=== PATIENT | female | born 1945 | race Caucasian/White ===

== ENCOUNTER → 2016-12-22 | Outpatient (CLI) | payer OTHER ==
[2016-06-22 11:00] VITALS: BP 141/51
[~2016-12-22] MED LIST: ACET500T68 PO; ASPI325T8 PO; CEPH-264 PO; FLUT1DIS3 IH; INSU100I17 SQ; INSU100I30 SQ; INSU100V8 SQ; LISI-338 PO; LISI2.5T PO; Levofloxacin PO; METO25TA4 PO; MULT-245 PO; NITR0.4T SL; OMEG300C PO; OXYB5TAB7 PO; PERFLUTREN PROTEIN-A MICROSPHR 0.22 MG/ML 3 ML VIAL. IV ONE; PIOG30TA3 PO; PRED20TA PO; PROAIR HFA8.5 GM IH; SIMV20TA3 PO; TIOT18CA IH
--- NOTE | 2016-12-23 09:04 | CARD ---
APPROVED REPORT EXAM: Two-dimensional and M-mode echocardiogram with Doppler and color Doppler. Other Information Quality : Technically Limited Technically limited study due to body habitus. INDICATION CAD Echo Enhancing Agent Agent/Amount Used: Optison 3mL 2D DIMENSIONS RVDd3.2 (2.9-3.5cm)Left Atrium(2D)5.2 (1.6-4.0cm) IVSd1.2 (0.7-1.1cm)Aortic Root(2D)2.9 (2.0-3.7cm) LVDd5.6 (3.9-5.9cm)LVOT Diameter2.0 (1.8-2.4cm) PWd1.2 (0.7-1.1cm)LVDs3.9 (2.5-4.0cm) FS (%) 29.2 %SV84.0 ml LVEF(%)55.5 (>50%) Aortic Valve AoV Peak Kayode.188.8cm/sAoV VTI39.6cm AO Peak GR.14.3mmHgLVOT Peak Kayode.145.5cm/s AO Mean GR.7mmHgAVA (VMAX)2.38cm2 ECHO (VTI)2.70cm2 Mitral Valve MV E Njjuvmgk983.1cm/sMV DECEL MVUD160ix MV A Rxhzqfqz07.3cm/sE/A Ratio1.5 Tricuspid Valve TR P. Zxilvwrm659bm/sRAP FGZLQLUB3zbLf TR Peak Gr.71okGlDZXS84cwXh LEFT VENTRICLE The left ventricle is normal size. There is mild concentric left ventricular hypertrophy. Left ventri galdino systolic function is low normal. The Ejection Fraction is 50-55%. Grossly normal wall motion. Due to limited images, further assessment is limited. Transmitral Doppler flow pattern is Grade I-abnorm al relaxation pattern. RIGHT VENTRICLE Not well visualized. The right ventricular systolic function is normal. ATRIA The left atrium is mildly dilated. The right atrium size is normal. The interatrial septum is intact with no evidence for an atrial septal defect or patent foramen ovale as noted on 2-D or Doppler imagi ng. AORTIC VALVE Not well visualized. Doppler and Color Flow revealed no significant aortic regurgitation. There is no significant aortic valvular stenosis. MITRAL VALVE The mitral valve is calcified but opens well. There is no evidence of mitral valve prolapse. There is no mitral valve stenosis. Doppler and Color Flow revealed no mitral valve regurgitation noted. TRICUSPID VALVE The tricuspid valve is normal in structure and function. Doppler and Color Flow revealed mild tricusp id regurgitation. There is no pulmonary hypertension. The PA pressure was estimated at 21 mmHg. There is no tricuspid valve stenosis. PULMONIC VALVE Doppler and Color Flow revealed no pulmonic valvular regurgitation. There is no pulmonic valvular wil nosis. GREAT VESSELS The aortic root is normal in size. The ascending aorta is normal in size. The IVC is normal in size a nd collapses >50% with inspiration. PERICARDIAL EFFUSION There is no pleural effusion. There is no evidence of significant pericardial effusion. Critical Notification Critical Value: No <Conclusion> Left ventricle systolic function is low normal. The Ejection Fraction is 50-55%. Paradoxical septal motion consistent with post-operative state. Grossly normal wall motion. Due to limited images, further assessment is limited.
== END | disposition home or self-care (01) ==
LOC: ECHO 14:03
PROVIDERS: ATTEND Internal Medicine Cardiovascular Disease
DX: I25.10 Atherosclerotic heart disease of native coronary artery without angina pectoris (principal)
CPT/HCPCS: C8929

== ENCOUNTER 2017-02-26 08:22 | Inpatient (IN) | payer OTHER ==
[2017-02-26] MEDS ORDERED: ALBUTEROL SULFATE 2.5 MG/3 ML NEBU. (08:53)
[2017-02-26 09:02] LABS: ADD MAN DIFF? NO
[2017-02-26] MEDS: IPRATRPIUM/ALBUTEROL 0.5/2.5MG 3 ML NEBU. NEB ×4 (09:05→20:00)
[2017-02-26] MEDS: ALBUTEROL SULFATE 2.5 MG/3 ML NEBU. CONT NEB (09:05)
[2017-02-26] MEDS ORDERED: methylPREDNISolone SOD SUCC PF 125 MG/2 ML VIAL. ×2 (09:12)
[2017-02-26] MEDS: methylPREDNISolone SOD SUCC PF 125 MG/2 ML VIAL. IV (09:16)
[2017-02-26 09:18] LABS: ANION GAP 8 (6-14); BLOOD UREA NITROGEN 14 mg/dL (7-20); BUN/CREATININE RATIO 20 (6-20); CALCIUM 9.7 mg/dL (8.5-10.1); CARBON DIOXIDE 32 mmol/L (21-32); CHLORIDE 97 mmol/L (98-107); CREATININE 0.7 mg/dL (0.6-1.0); GFR 82.3; GLUCOSE 218 mg/dL (70-99); POTASSIUM 4.6 mmol/L (3.5-5.1); SODIUM 137 mmol/L (136-145)
[2017-02-26 09:23] LABS: BASO % 0 % (0-3); EOS % 0 % (0-3); HEMATOCRIT 42.3 % (36.0-47.0); HEMOGLOBIN 13.8 g/dL (12.0-15.5); LYMPH # 0.5 x10^3/uL (1.0-4.8); LYMPH % 8 % (24-48); MEAN CORPUSCULAR HEMOGLOBIN 30 pg (25-35); MEAN CORPUSCULAR HGB CONC 33 g/dL (31-37); MEAN CORPUSCULAR VOLUME 91 fL (79-100); MONO # 0.9 x10^3/uL (0.0-1.1); MONO % 14 % (0-9); NEUT # 4.8 x10^3uL (1.8-7.7); NEUT % 77 % (31-73); PLATELET COUNT 187 x10^3/uL (140-400); RED BLOOD COUNT 4.63 x10^6/uL (3.50-5.40); RED CELL DISTRIBUTION WIDTH 15.2 % (11.5-14.5); WHITE BLOOD COUNT 6.2 x10^3/uL (4.0-11.0)
[2017-02-26 09:25] LABS: BASE EXCESS ABG 3 mmol/L (-3-3); HCO3 ABG 30 mmol/L (21-28); INFLUENZA A PATIENT NEGATIVE (NEGATIVE); INFLUENZA B PATIENT NEGATIVE (NEGATIVE); OBC FLU VALID; PCO2 ABG 56 mmHg (35-46); PH ABG 7.34 (7.35-7.45); PO2 ABG 80 mmHg (65-108); SAT O2 ABG 95 % (92-99)
[2017-02-26 09:26] LABS: ALBUMIN 3.6 g/dL (3.4-5.0); ALK PHOS 112 U/L (46-116); ALT (SGPT) 22 U/L (14-59); AST (SGOT) 22 U/L (15-37); TOTAL BILIRUBIN 0.5 mg/dL (0.2-1.0); TOTAL PROTEIN 7.1 g/dL (6.4-8.2)
[2017-02-26 09:26] LABS: TROPONINI 0.046 ng/mL (0.000-0.055)
[2017-02-26 09:27] LABS: FIO2 ABG 10 lpm mask
[2017-02-26 09:32] LABS: NT-PRO BNP 1078 pg/mL (0-124)
[2017-02-26 09:32] LABS: CKMB INDEX 1.1 % (0-4); CKMB MASS 0.8 ng/mL (0.0-3.6); CREATINE KINASE 76 U/L (26-192)
[2017-02-26] MEDS ORDERED: NITROGLYCERIN SUBLINGUAL 0.4 MG BOTTLE OF 25. SL (09:45)
[2017-02-26] MEDS: ASPIRIN 325 MG TABLET PO (12:01)
[2017-02-26] MEDS: METOPROLOL TART IMMED RELEASE 25 MG TABLET. PO ×2 (12:02→20:49)
[2017-02-26] MEDS: FAMOTIDINE 20 MG TABLET. PO ×2 (12:02→20:49)
[2017-02-26] MEDS: ENOXAPARIN 40 MG/0.4 ML SYRINGE. SQ (12:03)
[2017-02-26] MEDS: BUDESONIDE 0.5 MG/2 ML NEBU. NEB ×2 (12:31→20:00)
[2017-02-26 14:50] LABS: POC GLUCOSE 248 mg/dL (70-99)
[2017-02-26] MEDS: methylPREDNISolone SOD SUCC PF 40 MG/ML VIAL. IV ×2 (15:13→20:48)
[2017-02-26] MEDS: INSULIN ASPART 300 UNITS/3 ML INSULN.PEN SQ ×4 (15:19→19:03)
[2017-02-26 16:55] LABS: POC GLUCOSE 346 mg/dL (70-99)
[2017-02-26 16:58] LABS: TROPONINI 0.037 ng/mL (0.000-0.055)
[2017-02-26] MEDS: INSULIN DETEMIR 300 UNITS/3 ML INSULN.PEN. SQ (20:55)
[2017-02-26] MEDS: SIMVASTATIN 20 MG TABLET PO (20:56)
[2017-02-26 21:38] LABS: POC GLUCOSE 310 mg/dL (70-99)
[2017-02-27] MEDS: IPRATRPIUM/ALBUTEROL 0.5/2.5MG 3 ML NEBU. NEB ×7 (00:29→23:48)
[2017-02-27 05:33] LABS: ADD MAN DIFF? NO
[2017-02-27 05:36] LABS: BASO % 0 % (0-3); EOS % 0 % (0-3); HEMATOCRIT 42.2 % (36.0-47.0); HEMOGLOBIN 13.7 g/dL (12.0-15.5); LYMPH # 0.5 x10^3/uL (1.0-4.8); LYMPH % 9 % (24-48); MEAN CORPUSCULAR HEMOGLOBIN 30 pg (25-35); MEAN CORPUSCULAR HGB CONC 32 g/dL (31-37); MEAN CORPUSCULAR VOLUME 92 fL (79-100); MONO # 0.5 x10^3/uL (0.0-1.1); MONO % 10 % (0-9); NEUT # 4.2 x10^3uL (1.8-7.7); NEUT % 81 % (31-73); PLATELET COUNT 195 x10^3/uL (140-400); RED CELL DISTRIBUTION WIDTH 14.9 % (11.5-14.5); WHITE BLOOD COUNT 5.2 x10^3/uL (4.0-11.0)
[2017-02-27] MEDS: methylPREDNISolone SOD SUCC PF 40 MG/ML VIAL. IV ×3 (05:36→20:58)
[2017-02-27 06:43] LABS: ALBUMIN 3.2 g/dL (3.4-5.0); ALBUMIN/GLOBULIN RATIO 0.8 (1.0-1.7); ALK PHOS 99 U/L (46-116); ALT (SGPT) 23 U/L (14-59); ANION GAP 7 (6-14); AST (SGOT) 20 U/L (15-37); BLOOD UREA NITROGEN 30 mg/dL (7-20); BUN/CREATININE RATIO 30 (6-20); CALCIUM 9.7 mg/dL (8.5-10.1); CARBON DIOXIDE 32 mmol/L (21-32); CHLORIDE 98 mmol/L (98-107); GFR 54.5; GLUCOSE 274 mg/dL (70-99); POTASSIUM 4.9 mmol/L (3.5-5.1); SODIUM 137 mmol/L (136-145); TOTAL BILIRUBIN 0.2 mg/dL (0.2-1.0); TOTAL PROTEIN 7.3 g/dL (6.4-8.2)
[2017-02-27 07:12] LABS: POC GLUCOSE 272 mg/dL (70-99)
[2017-02-27] MEDS: BUDESONIDE 0.5 MG/2 ML NEBU. NEB ×2 (07:33→18:26)
[2017-02-27] MEDS: OXYBUTYNIN CHLORIDE 5 MG TABLET PO (08:33)
[2017-02-27] MEDS: FAMOTIDINE 20 MG TABLET. PO ×2 (08:34→20:58)
[2017-02-27] MEDS: LISINOPRIL 5 MG TABLET. PO (08:34)
[2017-02-27] MEDS: OMEGA-3 FATTY ACIDS/FISH OIL 1,000 MG CAPSULE. PO (08:34)
[2017-02-27] MEDS: ASPIRIN 325 MG TABLET PO (08:34)
[2017-02-27] MEDS: METOPROLOL TART IMMED RELEASE 25 MG TABLET. PO ×2 (08:34→21:05)
[2017-02-27] MEDS: ENOXAPARIN 40 MG/0.4 ML SYRINGE. SQ ×2 (08:35→21:02)
[2017-02-27] MEDS: INSULIN ASPART 300 UNITS/3 ML INSULN.PEN SQ ×6 (08:41→17:00)
[2017-02-27] MEDS: PIOGLITAZONE 15 MG TABLET. PO (10:16)
[2017-02-27 11:12] LABS: POC GLUCOSE 306 mg/dL (70-99)
[2017-02-27] MEDS: LACTULOSE 20 GM/30 ML SOLUTION. PO ×2 (11:59→14:15)
[2017-02-27] MEDS: IV NORMAL SALINE 1000ML BAG 1,000 ML IV (11:59)
[2017-02-27] MEDS: NYSTATIN 100,000 UNIT/GM TOPICAL CREAM 15GM TUBE. TP ×2 (12:10→21:00)
[2017-02-27 16:51] LABS: POC GLUCOSE 174 mg/dL (70-99)
[2017-02-27 20:51] LABS: POC GLUCOSE 207 mg/dL (70-99)
[2017-02-27] MEDS: SIMVASTATIN 20 MG TABLET PO (20:58)
[2017-02-27] MEDS: INSULIN DETEMIR 300 UNITS/3 ML INSULN.PEN. SQ (21:08)
[2017-02-28] MEDS: IPRATRPIUM/ALBUTEROL 0.5/2.5MG 3 ML NEBU. NEB ×6 (03:13→23:52)
[2017-02-28] MEDS: IV NORMAL SALINE 1000ML BAG 1,000 ML IV (03:25)
[2017-02-28] MEDS: methylPREDNISolone SOD SUCC PF 40 MG/ML VIAL. IV ×3 (05:15→21:55)
[2017-02-28 07:14] LABS: POC GLUCOSE 259 mg/dL (70-99)
[2017-02-28 07:53] LABS: ANION GAP 4 (6-14); BLOOD UREA NITROGEN 29 mg/dL (7-20); CARBON DIOXIDE 33 mmol/L (21-32); CHLORIDE 101 mmol/L (98-107); CREATININE 0.9 mg/dL (0.6-1.0); GFR 61.5; GLUCOSE 276 mg/dL (70-99); POTASSIUM 4.9 mmol/L (3.5-5.1); SODIUM 138 mmol/L (136-145)
[2017-02-28] MEDS: OMEGA-3 FATTY ACIDS/FISH OIL 1,000 MG CAPSULE. PO (08:16)
[2017-02-28] MEDS: FAMOTIDINE 20 MG TABLET. PO ×2 (08:16→21:46)
[2017-02-28] MEDS: PIOGLITAZONE 15 MG TABLET. PO (08:16)
[2017-02-28] MEDS: ASPIRIN 325 MG TABLET PO (08:16)
[2017-02-28] MEDS: OXYBUTYNIN CHLORIDE 5 MG TABLET PO (08:16)
[2017-02-28] MEDS: METOPROLOL TART IMMED RELEASE 25 MG TABLET. PO ×2 (08:17→21:46)
[2017-02-28] MEDS: ENOXAPARIN 40 MG/0.4 ML SYRINGE. SQ (08:17)
[2017-02-28] MEDS: INSULIN ASPART 300 UNITS/3 ML INSULN.PEN SQ ×6 (08:23→17:00)
[2017-02-28] MEDS: BUDESONIDE 0.5 MG/2 ML NEBU. NEB ×2 (08:33→19:43)
[2017-02-28] MEDS: NYSTATIN 100,000 UNIT/GM TOPICAL CREAM 15GM TUBE. TP ×2 (10:15→21:46)
[2017-02-28 11:30] LABS: POC GLUCOSE 190 mg/dL (70-99)
[2017-02-28 16:36] LABS: POC GLUCOSE 72 mg/dL (70-99)
[2017-02-28 20:28] LABS: POC GLUCOSE 183 mg/dL (70-99)
[2017-02-28] MEDS ORDERED: ENOXAPARIN 40 MG/0.4 ML SYRINGE. SQ (21:00)
[2017-02-28] MEDS: ACETAMINOPHEN 325 MG TABLET. PO (21:45)
[2017-02-28] MEDS: SIMVASTATIN 20 MG TABLET PO (21:46)
[2017-02-28] MEDS: INSULIN DETEMIR 300 UNITS/3 ML INSULN.PEN. SQ (21:49)
[2017-03-01] MEDS: IPRATRPIUM/ALBUTEROL 0.5/2.5MG 3 ML NEBU. NEB ×6 (03:35→23:17)
[2017-03-01] MEDS: methylPREDNISolone SOD SUCC PF 40 MG/ML VIAL. IV ×2 (05:41→22:41)
[2017-03-01 06:53] LABS: POC GLUCOSE 300 mg/dL (70-99)
[2017-03-01] MEDS: OMEGA-3 FATTY ACIDS/FISH OIL 1,000 MG CAPSULE. PO (07:54)
[2017-03-01] MEDS: PIOGLITAZONE 15 MG TABLET. PO (07:54)
[2017-03-01] MEDS: OXYBUTYNIN CHLORIDE 5 MG TABLET PO (07:54)
[2017-03-01] MEDS: ASPIRIN 325 MG TABLET PO (07:54)
[2017-03-01] MEDS: FAMOTIDINE 20 MG TABLET. PO ×2 (07:54→22:41)
[2017-03-01] MEDS: ENOXAPARIN 40 MG/0.4 ML SYRINGE. SQ (07:55)
[2017-03-01] MEDS: NYSTATIN 100,000 UNIT/GM TOPICAL CREAM 15GM TUBE. TP ×2 (07:55→21:00)
[2017-03-01] MEDS: METOPROLOL TART IMMED RELEASE 25 MG TABLET. PO ×2 (07:55→22:41)
[2017-03-01] MEDS: BUDESONIDE 0.5 MG/2 ML NEBU. NEB ×2 (08:00→19:24)
[2017-03-01] MEDS: INSULIN ASPART 300 UNITS/3 ML INSULN.PEN SQ ×7 (08:00→17:21)
[2017-03-01] MEDS ORDERED: ENOXAPARIN 40 MG/0.4 ML SYRINGE. SQ (09:00)
[2017-03-01] MEDS: LISINOPRIL 5 MG TABLET. PO (10:49)
[2017-03-01 11:25] LABS: POC GLUCOSE 144 mg/dL (70-99)
[2017-03-01 17:12] LABS: POC GLUCOSE 105 mg/dL (70-99)
[2017-03-01] MEDS ORDERED: INSULIN DETEMIR 300 UNITS/3 ML INSULN.PEN. SQ (21:00)
[2017-03-01 21:30] LABS: POC GLUCOSE 236 mg/dL (70-99)
[2017-03-01] MEDS: SIMVASTATIN 20 MG TABLET PO (22:41)
[2017-03-01] MEDS: INSULIN DETEMIR 300 UNITS/3 ML INSULN.PEN. SQ (22:44)
[2017-03-01] MEDS: ACETAMINOPHEN 325 MG TABLET. PO (22:48)
[2017-03-02] MEDS: IPRATRPIUM/ALBUTEROL 0.5/2.5MG 3 ML NEBU. NEB ×6 (02:47→23:06)
[2017-03-02] MEDS ORDERED: INSULIN ASPART 300 UNITS/3 ML INSULN.PEN SQ (07:30)
[2017-03-02] MEDS: BUDESONIDE 0.5 MG/2 ML NEBU. NEB ×2 (07:40→20:18)
[2017-03-02 07:51] LABS: POC GLUCOSE 229 mg/dL (70-99)
[2017-03-02] MEDS: PIOGLITAZONE 15 MG TABLET. PO (09:49)
[2017-03-02] MEDS: ASPIRIN 325 MG TABLET PO (09:49)
[2017-03-02] MEDS: ACETAMINOPHEN 325 MG TABLET. PO (09:49)
[2017-03-02] MEDS: OMEGA-3 FATTY ACIDS/FISH OIL 1,000 MG CAPSULE. PO (09:49)
[2017-03-02] MEDS: LISINOPRIL 5 MG TABLET. PO (09:50)
[2017-03-02] MEDS: FAMOTIDINE 20 MG TABLET. PO ×2 (09:50→21:48)
[2017-03-02] MEDS: ONDANSETRON ODT 4 MG TAB.RAPDIS. PO (09:50)
[2017-03-02] MEDS: OXYBUTYNIN CHLORIDE 5 MG TABLET PO (09:51)
[2017-03-02] MEDS: NYSTATIN 100,000 UNIT/GM TOPICAL CREAM 15GM TUBE. TP ×2 (09:54→22:07)
[2017-03-02] MEDS: INSULIN ASPART 300 UNITS/3 ML INSULN.PEN SQ ×5 (10:02→17:00)
[2017-03-02] MEDS: METOPROLOL TART IMMED RELEASE 25 MG TABLET. PO ×2 (11:09→21:49)
[2017-03-02] MEDS: ENOXAPARIN 40 MG/0.4 ML SYRINGE. SQ (11:09)
[2017-03-02] MEDS: MAGNESIUM HYDROXIDE 2,400 MG/30 ML ORAL.SUSP. PO (11:09)
[2017-03-02 11:38] LABS: POC GLUCOSE 307 mg/dL (70-99)
[2017-03-02] MEDS: methylPREDNISolone SOD SUCC PF 40 MG/ML VIAL. IV ×2 (13:17→21:51)
[2017-03-02 16:29] LABS: POC GLUCOSE 82 mg/dL (70-99)
[2017-03-02 21:34] LABS: POC GLUCOSE 243 mg/dL (70-99)
[2017-03-02] MEDS: SIMVASTATIN 20 MG TABLET PO (21:49)
[2017-03-02] MEDS: INSULIN DETEMIR 300 UNITS/3 ML INSULN.PEN. SQ (22:07)
[2017-03-03] MEDS: IPRATRPIUM/ALBUTEROL 0.5/2.5MG 3 ML NEBU. NEB ×6 (03:26→19:35)
[2017-03-03] MEDS: ONDANSETRON ODT 4 MG TAB.RAPDIS. PO (05:32)
[2017-03-03] MEDS: BUDESONIDE 0.5 MG/2 ML NEBU. NEB ×2 (07:10→19:34)
[2017-03-03] MEDS: INSULIN ASPART 300 UNITS/3 ML INSULN.PEN SQ ×7 (08:00→18:33)
[2017-03-03] MEDS ORDERED: ALBUTEROL SULFATE 2.5 MG/3 ML NEBU. NEB (09:15)
[2017-03-03] MEDS: MAGNESIUM HYDROXIDE 2,400 MG/30 ML ORAL.SUSP. PO (09:34)
[2017-03-03] MEDS: OXYBUTYNIN CHLORIDE 5 MG TABLET PO (09:35)
[2017-03-03] MEDS: ASPIRIN 325 MG TABLET PO (09:35)
[2017-03-03] MEDS: FAMOTIDINE 20 MG TABLET. PO ×2 (09:35→21:20)
[2017-03-03] MEDS: LISINOPRIL 5 MG TABLET. PO (09:38)
[2017-03-03] MEDS: PIOGLITAZONE 15 MG TABLET. PO (09:39)
[2017-03-03] MEDS: OMEGA-3 FATTY ACIDS/FISH OIL 1,000 MG CAPSULE. PO (09:39)
[2017-03-03] MEDS: predniSONE 10 MG TABLET PO (09:55)
[2017-03-03] MEDS: ENOXAPARIN 40 MG/0.4 ML SYRINGE. SQ (09:56)
[2017-03-03] MEDS: NYSTATIN 100,000 UNIT/GM TOPICAL CREAM 15GM TUBE. TP ×2 (09:57→21:22)
[2017-03-03] MEDS ORDERED: METOPROLOL TART IMMED RELEASE 50 MG TABLET. PO (10:00)
[2017-03-03 11:48] LABS: POC GLUCOSE 213 mg/dL (70-99)
[2017-03-03 12:44] LABS: POC GLUCOSE 225 mg/dL (70-99)
[2017-03-03 16:50] LABS: POC GLUCOSE 160 mg/dL (70-99)
[2017-03-03 21:06] LABS: POC GLUCOSE 353 mg/dL (70-99)
[2017-03-03] MEDS: ATORVASTATIN CALCIUM 10 MG TABLET. PO (21:20)
[2017-03-03] MEDS: INSULIN DETEMIR 300 UNITS/3 ML INSULN.PEN. SQ (21:32)
[2017-03-04 06:52] LABS: INR 0.9 (0.8-1.1); PROTHROMBIN TIME PATIENT 11.9 SEC (11.7-14.0)
[2017-03-04 06:57] LABS: POC GLUCOSE 112 mg/dL (70-99)
[2017-03-04] MEDS: IPRATRPIUM/ALBUTEROL 0.5/2.5MG 3 ML NEBU. NEB ×4 (07:10→19:00)
[2017-03-04] MEDS: BUDESONIDE 0.5 MG/2 ML NEBU. NEB ×2 (07:10→19:00)
[2017-03-04 07:22] LABS: BLOOD UREA NITROGEN 25 mg/dL (7-20); CALCIUM 11.2 mg/dL (8.5-10.1); CHLORIDE 99 mmol/L (98-107); CREATININE 0.9 mg/dL (0.6-1.0); GFR 61.5; GLUCOSE 136 mg/dL (70-99); MAGNESIUM 2.3 mg/dL (1.8-2.4); POTASSIUM 4.6 mmol/L (3.5-5.1); SODIUM 145 mmol/L (136-145)
[2017-03-04 07:22] LABS: FREE T4 1.17 ng/dL (0.76-1.46)
[2017-03-04 07:23] LABS: CARBON DIOXIDE > 45 mmol/L (21-32)
[2017-03-04] MEDS: INSULIN ASPART 300 UNITS/3 ML INSULN.PEN SQ ×6 (08:00→17:03)
[2017-03-04] MEDS: PIOGLITAZONE 15 MG TABLET. PO (08:50)
[2017-03-04] MEDS: LISINOPRIL 5 MG TABLET. PO (08:50)
[2017-03-04] MEDS: predniSONE 10 MG TABLET PO (08:50)
[2017-03-04] MEDS: OXYBUTYNIN CHLORIDE 5 MG TABLET PO (08:50)
[2017-03-04] MEDS: FAMOTIDINE 20 MG TABLET. PO ×2 (08:50→21:13)
[2017-03-04] MEDS: ASPIRIN 325 MG TABLET PO (08:51)
[2017-03-04] MEDS: OMEGA-3 FATTY ACIDS/FISH OIL 1,000 MG CAPSULE. PO (08:51)
[2017-03-04] MEDS: MAGNESIUM HYDROXIDE 2,400 MG/30 ML ORAL.SUSP. PO (08:52)
[2017-03-04] MEDS: ENOXAPARIN 40 MG/0.4 ML SYRINGE. SQ (08:52)
[2017-03-04] MEDS: NYSTATIN 100,000 UNIT/GM TOPICAL CREAM 15GM TUBE. TP ×2 (08:53→21:12)
[2017-03-04 11:14] LABS: POC GLUCOSE 181 mg/dL (70-99)
[2017-03-04] MEDS: guaiFENesin DM 200MG/20MG 10 ML SYRUP PO ×2 (11:59→21:13)
[2017-03-04] MEDS: LACTULOSE 20 GM/30 ML SOLUTION. PO (11:59)
[2017-03-04] MEDS: METOPROLOL TART IMMED RELEASE 25 MG TABLET. PO ×2 (11:59→21:14)
[2017-03-04] MEDS: LOSARTAN POTASSIUM 50 MG TABLET. PO (12:00)
[2017-03-04] MEDS: ANTI-COAG MONITOR BY PHARMACY. MC (13:56)
[2017-03-04 16:38] LABS: POC GLUCOSE 131 mg/dL (70-99)
[2017-03-04 20:54] LABS: POC GLUCOSE 234 mg/dL (70-99)
[2017-03-04] MEDS: ATORVASTATIN CALCIUM 10 MG TABLET. PO (21:13)
[2017-03-04] MEDS: INSULIN DETEMIR 300 UNITS/3 ML INSULN.PEN. SQ (21:16)
[2017-03-05 05:59] LABS: ADD MAN DIFF? NO
[2017-03-05 06:15] LABS: BASO % 0 % (0-3); EOS % 0 % (0-3); HEMATOCRIT 43.8 % (36.0-47.0); HEMOGLOBIN 14.4 g/dL (12.0-15.5); LYMPH % 21 % (24-48); MEAN CORPUSCULAR HEMOGLOBIN 30 pg (25-35); MEAN CORPUSCULAR HGB CONC 33 g/dL (31-37); MEAN CORPUSCULAR VOLUME 92 fL (79-100); MONO # 0.9 x10^3/uL (0.0-1.1); MONO % 9 % (0-9); NEUT # 6.8 x10^3uL (1.8-7.7); NEUT % 69 % (31-73); PLATELET COUNT 196 x10^3/uL (140-400); RED BLOOD COUNT 4.76 x10^6/uL (3.50-5.40); RED CELL DISTRIBUTION WIDTH 14.2 % (11.5-14.5); WHITE BLOOD COUNT 9.8 x10^3/uL (4.0-11.0)
[2017-03-05 06:39] LABS: ANION GAP 3 (6-14); BLOOD UREA NITROGEN 24 mg/dL (7-20); CALCIUM 10.5 mg/dL (8.5-10.1); CARBON DIOXIDE 41 mmol/L (21-32); CHLORIDE 96 mmol/L (98-107); CREATININE 0.9 mg/dL (0.6-1.0); GFR 61.5; GLUCOSE 93 mg/dL (70-99); SODIUM 140 mmol/L (136-145)
[2017-03-05] MEDS: IPRATRPIUM/ALBUTEROL 0.5/2.5MG 3 ML NEBU. NEB ×4 (07:05→19:40)
[2017-03-05] MEDS: BUDESONIDE 0.5 MG/2 ML NEBU. NEB ×2 (07:06→19:40)
[2017-03-05] MEDS: INSULIN ASPART 300 UNITS/3 ML INSULN.PEN SQ ×6 (07:30→17:09)
[2017-03-05 07:51] LABS: POC GLUCOSE 70 mg/dL (70-99)
[2017-03-05] MEDS: MAGNESIUM HYDROXIDE 2,400 MG/30 ML ORAL.SUSP. PO (08:29)
[2017-03-05] MEDS: guaiFENesin DM 200MG/20MG 10 ML SYRUP PO ×2 (08:29→17:11)
[2017-03-05] MEDS: ASPIRIN 325 MG TABLET PO (08:31)
[2017-03-05] MEDS: METOPROLOL TART IMMED RELEASE 25 MG TABLET. PO ×2 (08:31→20:50)
[2017-03-05] MEDS: predniSONE 10 MG TABLET PO (08:31)
[2017-03-05] MEDS: ONDANSETRON ODT 4 MG TAB.RAPDIS. PO (08:31)
[2017-03-05] MEDS: LOSARTAN POTASSIUM 50 MG TABLET. PO (08:31)
[2017-03-05] MEDS: OMEGA-3 FATTY ACIDS/FISH OIL 1,000 MG CAPSULE. PO (08:31)
[2017-03-05] MEDS: PIOGLITAZONE 15 MG TABLET. PO (08:31)
[2017-03-05] MEDS: FAMOTIDINE 20 MG TABLET. PO ×2 (08:31→20:49)
[2017-03-05] MEDS: OXYBUTYNIN CHLORIDE 5 MG TABLET PO (08:31)
[2017-03-05] MEDS: NYSTATIN 100,000 UNIT/GM TOPICAL CREAM 15GM TUBE. TP ×2 (08:39→20:51)
[2017-03-05 11:52] LABS: POC GLUCOSE 222 mg/dL (70-99)
[2017-03-05] MEDS: ACETAMINOPHEN 325 MG TABLET. PO (14:16)
[2017-03-05] MEDS: WARFARIN 5 MG TABLET. PO (15:46)
[2017-03-05 17:06] LABS: POC GLUCOSE 313 mg/dL (70-99)
[2017-03-05] MEDS: ATORVASTATIN CALCIUM 10 MG TABLET. PO (20:49)
[2017-03-05] MEDS: INSULIN DETEMIR 300 UNITS/3 ML INSULN.PEN. SQ (21:01)
[2017-03-05 21:02] LABS: POC GLUCOSE 314 mg/dL (70-99)
[2017-03-06] MEDS: guaiFENesin DM 200MG/20MG 10 ML SYRUP PO ×2 (02:33→09:00)
[2017-03-06 06:59] LABS: POC GLUCOSE 162 mg/dL (70-99)
[2017-03-06] MEDS: BUDESONIDE 0.5 MG/2 ML NEBU. NEB ×2 (07:21→19:35)
[2017-03-06] MEDS: IPRATRPIUM/ALBUTEROL 0.5/2.5MG 3 ML NEBU. NEB ×4 (07:21→19:35)
[2017-03-06] MEDS: INSULIN ASPART 300 UNITS/3 ML INSULN.PEN SQ ×6 (07:45→17:33)
[2017-03-06 08:30] LABS: INR 0.9 (0.8-1.1)
[2017-03-06] MEDS: PIOGLITAZONE 15 MG TABLET. PO (08:52)
[2017-03-06] MEDS: FAMOTIDINE 20 MG TABLET. PO ×2 (08:53→21:14)
[2017-03-06] MEDS: LOSARTAN POTASSIUM 50 MG TABLET. PO (08:53)
[2017-03-06] MEDS: OXYBUTYNIN CHLORIDE 5 MG TABLET PO (08:53)
[2017-03-06] MEDS: predniSONE 10 MG TABLET PO (08:53)
[2017-03-06] MEDS: OMEGA-3 FATTY ACIDS/FISH OIL 1,000 MG CAPSULE. PO (08:53)
[2017-03-06] MEDS: METOPROLOL TART IMMED RELEASE 25 MG TABLET. PO ×2 (08:54→21:15)
[2017-03-06] MEDS: ASPIRIN ENTERIC COATED 81 MG TABLET.DR. PO (08:54)
[2017-03-06] MEDS: MAGNESIUM HYDROXIDE 2,400 MG/30 ML ORAL.SUSP. PO (09:01)
[2017-03-06] MEDS: NYSTATIN 100,000 UNIT/GM TOPICAL CREAM 15GM TUBE. TP ×2 (09:03→21:00)
[2017-03-06 11:24] LABS: POC GLUCOSE 171 mg/dL (70-99)
[2017-03-06] MEDS: LACTULOSE 20 GM/30 ML SOLUTION. PO ×2 (16:00→18:00)
[2017-03-06 16:30] LABS: POC GLUCOSE 234 mg/dL (70-99)
[2017-03-06] MEDS: WARFARIN 7.5 MG TABLET. PO (17:28)
[2017-03-06 20:42] LABS: POC GLUCOSE 331 mg/dL (70-99)
[2017-03-06] MEDS: INSULIN DETEMIR 300 UNITS/3 ML INSULN.PEN. SQ (21:00)
[2017-03-06] MEDS: ATORVASTATIN CALCIUM 10 MG TABLET. PO (21:15)
[2017-03-06] MEDS: MONTELUKAST SODIUM 10 MG TABLET. PO (21:25)
[2017-03-07 06:43] LABS: INR 1.2 (0.8-1.1); PROTHROMBIN TIME PATIENT 14.1 SEC (11.7-14.0)
[2017-03-07 06:51] LABS: ANION GAP 0 (6-14); BLOOD UREA NITROGEN 24 mg/dL (7-20); CALCIUM 10.3 mg/dL (8.5-10.1); CARBON DIOXIDE 42 mmol/L (21-32); CHLORIDE 99 mmol/L (98-107); CREATININE 0.9 mg/dL (0.6-1.0); GFR 61.5; GLUCOSE 140 mg/dL (70-99); POTASSIUM 4.5 mmol/L (3.5-5.1); SODIUM 141 mmol/L (136-145)
[2017-03-07] MEDS: BUDESONIDE 0.5 MG/2 ML NEBU. NEB ×2 (07:24→18:06)
[2017-03-07] MEDS: IPRATRPIUM/ALBUTEROL 0.5/2.5MG 3 ML NEBU. NEB ×4 (07:24→18:06)
[2017-03-07 07:59] LABS: POC GLUCOSE 115 mg/dL (70-99)
[2017-03-07] MEDS: INSULIN ASPART 300 UNITS/3 ML INSULN.PEN SQ ×6 (08:00→17:35)
[2017-03-07] MEDS: OMEGA-3 FATTY ACIDS/FISH OIL 1,000 MG CAPSULE. PO (08:51)
[2017-03-07] MEDS: FAMOTIDINE 20 MG TABLET. PO ×2 (08:51→21:02)
[2017-03-07] MEDS: METOPROLOL TART IMMED RELEASE 25 MG TABLET. PO ×2 (08:51→21:03)
[2017-03-07] MEDS: predniSONE 10 MG TABLET PO (08:51)
[2017-03-07] MEDS: OXYBUTYNIN CHLORIDE 5 MG TABLET PO (08:51)
[2017-03-07] MEDS: PIOGLITAZONE 15 MG TABLET. PO (08:51)
[2017-03-07] MEDS: LOSARTAN POTASSIUM 50 MG TABLET. PO (08:55)
[2017-03-07] MEDS: ASPIRIN ENTERIC COATED 81 MG TABLET.DR. PO (08:56)
[2017-03-07] MEDS: NYSTATIN 100,000 UNIT/GM TOPICAL CREAM 15GM TUBE. TP ×2 (08:57→21:02)
[2017-03-07 11:18] LABS: POC GLUCOSE 197 mg/dL (70-99)
[2017-03-07] MEDS: FLUTICASONE 50MCG/NASAL SPRAY 16GM BOTTLE. NS (11:39)
[2017-03-07 16:24] LABS: POC GLUCOSE 262 mg/dL (70-99)
[2017-03-07] MEDS: WARFARIN 7.5 MG TABLET. PO (17:31)
[2017-03-07 20:48] LABS: POC GLUCOSE 284 mg/dL (70-99)
[2017-03-07] MEDS: guaiFENesin DM 200MG/20MG 10 ML SYRUP PO (21:01)
[2017-03-07] MEDS: MONTELUKAST SODIUM 10 MG TABLET. PO (21:02)
[2017-03-07] MEDS: ATORVASTATIN CALCIUM 10 MG TABLET. PO (21:02)
[2017-03-07] MEDS: INSULIN DETEMIR 300 UNITS/3 ML INSULN.PEN. SQ (21:17)
[2017-03-08 04:51] LABS: INR 1.5 (0.8-1.1); PROTHROMBIN TIME PATIENT 16.8 SEC (11.7-14.0)
[2017-03-08 07:32] LABS: POC GLUCOSE 139 mg/dL (70-99)
[2017-03-08] MEDS: BUDESONIDE 0.5 MG/2 ML NEBU. NEB ×2 (07:54→19:38)
[2017-03-08] MEDS: IPRATRPIUM/ALBUTEROL 0.5/2.5MG 3 ML NEBU. NEB ×4 (07:54→19:38)
[2017-03-08] MEDS: INSULIN ASPART 300 UNITS/3 ML INSULN.PEN SQ ×6 (08:00→17:03)
[2017-03-08] MEDS: FLUTICASONE 50MCG/NASAL SPRAY 16GM BOTTLE. NS (08:10)
[2017-03-08] MEDS: guaiFENesin DM 200MG/20MG 10 ML SYRUP PO ×2 (08:11→21:12)
[2017-03-08] MEDS: ASPIRIN ENTERIC COATED 81 MG TABLET.DR. PO (08:11)
[2017-03-08] MEDS: predniSONE 10 MG TABLET PO (08:12)
[2017-03-08] MEDS: WARFARIN 7.5 MG TABLET. PO (08:12)
[2017-03-08] MEDS: OXYBUTYNIN CHLORIDE 5 MG TABLET PO (08:12)
[2017-03-08] MEDS: METOPROLOL TART IMMED RELEASE 25 MG TABLET. PO ×2 (08:12→21:13)
[2017-03-08] MEDS: PIOGLITAZONE 15 MG TABLET. PO (08:13)
[2017-03-08] MEDS: FAMOTIDINE 20 MG TABLET. PO ×2 (08:13→21:13)
[2017-03-08] MEDS: OMEGA-3 FATTY ACIDS/FISH OIL 1,000 MG CAPSULE. PO (08:13)
[2017-03-08] MEDS: ONDANSETRON ODT 4 MG TAB.RAPDIS. PO (08:13)
[2017-03-08] MEDS: LOSARTAN POTASSIUM 50 MG TABLET. PO (08:13)
[2017-03-08] MEDS: NYSTATIN 100,000 UNIT/GM TOPICAL CREAM 15GM TUBE. TP ×2 (09:58→21:15)
[2017-03-08 11:30] LABS: POC GLUCOSE 152 mg/dL (70-99)
[2017-03-08] MEDS: MAGNESIUM HYDROXIDE 2,400 MG/30 ML ORAL.SUSP. PO (11:51)
[2017-03-08 13:46] LABS: LOW MOLECULAR WEIGHT HEPARIN > 2.00 IU/mL
[2017-03-08 16:14] LABS: POC GLUCOSE 184 mg/dL (70-99)
[2017-03-08 20:23] LABS: POC GLUCOSE 331 mg/dL (70-99)
[2017-03-08] MEDS: LACTOBACILLUS RHAMNOSUS GG 1 CAPSULE. PO (21:12)
[2017-03-08] MEDS: MONTELUKAST SODIUM 10 MG TABLET. PO (21:13)
[2017-03-08] MEDS: ATORVASTATIN CALCIUM 10 MG TABLET. PO (21:13)
[2017-03-08] MEDS: INSULIN DETEMIR 300 UNITS/3 ML INSULN.PEN. SQ (21:21)
[2017-03-09 06:28] LABS: INR 1.9 (0.8-1.1); PROTHROMBIN TIME PATIENT 20.3 SEC (11.7-14.0)
[2017-03-09] MEDS: IPRATRPIUM/ALBUTEROL 0.5/2.5MG 3 ML NEBU. NEB ×4 (07:27→19:09)
[2017-03-09] MEDS: BUDESONIDE 0.5 MG/2 ML NEBU. NEB ×2 (07:27→19:09)
[2017-03-09 07:51] LABS: POC GLUCOSE 112 mg/dL (70-99)
[2017-03-09] MEDS: INSULIN ASPART 300 UNITS/3 ML INSULN.PEN SQ ×6 (08:00→17:14)
[2017-03-09] MEDS: ASPIRIN ENTERIC COATED 81 MG TABLET.DR. PO (08:02)
[2017-03-09] MEDS: OMEGA-3 FATTY ACIDS/FISH OIL 1,000 MG CAPSULE. PO (08:02)
[2017-03-09] MEDS: FAMOTIDINE 20 MG TABLET. PO ×2 (08:03→20:39)
[2017-03-09] MEDS: LOSARTAN POTASSIUM 50 MG TABLET. PO (08:03)
[2017-03-09] MEDS: LACTOBACILLUS RHAMNOSUS GG 1 CAPSULE. PO ×2 (08:04→20:38)
[2017-03-09] MEDS: OXYBUTYNIN CHLORIDE 5 MG TABLET PO (08:04)
[2017-03-09] MEDS: predniSONE 10 MG TABLET PO (08:04)
[2017-03-09] MEDS: PIOGLITAZONE 15 MG TABLET. PO (08:04)
[2017-03-09] MEDS: FLUTICASONE 50MCG/NASAL SPRAY 16GM BOTTLE. NS (08:05)
[2017-03-09] MEDS: guaiFENesin DM 200MG/20MG 10 ML SYRUP PO ×2 (08:05→20:38)
[2017-03-09] MEDS: METOPROLOL TART IMMED RELEASE 25 MG TABLET. PO ×2 (08:05→20:40)
[2017-03-09] MEDS: NYSTATIN 100,000 UNIT/GM TOPICAL CREAM 15GM TUBE. TP ×2 (08:06→20:40)
[2017-03-09 11:33] LABS: POC GLUCOSE 173 mg/dL (70-99)
[2017-03-09] MEDS: WARFARIN 5 MG TABLET. PO (15:51)
[2017-03-09 16:39] LABS: POC GLUCOSE 330 mg/dL (70-99)
[2017-03-09 20:20] LABS: POC GLUCOSE 271 mg/dL (70-99)
[2017-03-09] MEDS: MONTELUKAST SODIUM 10 MG TABLET. PO (20:38)
[2017-03-09] MEDS: ATORVASTATIN CALCIUM 10 MG TABLET. PO (20:38)
[2017-03-09] MEDS: INSULIN DETEMIR 300 UNITS/3 ML INSULN.PEN. SQ (21:49)
[2017-03-10 05:12] LABS: ADD MAN DIFF? NO
[2017-03-10 05:32] LABS: INR 2.1 (0.8-1.1)
[2017-03-10 05:39] LABS: ANION GAP 3 (6-14); BLOOD UREA NITROGEN 21 mg/dL (7-20); CALCIUM 10.1 mg/dL (8.5-10.1); CARBON DIOXIDE 39 mmol/L (21-32); CHLORIDE 99 mmol/L (98-107); GFR 54.5; GLUCOSE 109 mg/dL (70-99); POTASSIUM 4.1 mmol/L (3.5-5.1); SODIUM 141 mmol/L (136-145)
[2017-03-10 05:40] LABS: BASO % 0 % (0-3); EOS % 0 % (0-3); HEMATOCRIT 40.9 % (36.0-47.0); HEMOGLOBIN 13.3 g/dL (12.0-15.5); LYMPH # 1.9 x10^3/uL (1.0-4.8); LYMPH % 14 % (24-48); MEAN CORPUSCULAR HEMOGLOBIN 30 pg (25-35); MEAN CORPUSCULAR HGB CONC 32 g/dL (31-37); MEAN CORPUSCULAR VOLUME 93 fL (79-100); MONO # 1.1 x10^3/uL (0.0-1.1); MONO % 8 % (0-9); NEUT # 10.2 x10^3uL (1.8-7.7); NEUT % 77 % (31-73); PLATELET COUNT 184 x10^3/uL (140-400); RED CELL DISTRIBUTION WIDTH 14.3 % (11.5-14.5); WHITE BLOOD COUNT 13.2 x10^3/uL (4.0-11.0)
[2017-03-10] MEDS: BUDESONIDE 0.5 MG/2 ML NEBU. NEB (07:43)
[2017-03-10] MEDS: IPRATRPIUM/ALBUTEROL 0.5/2.5MG 3 ML NEBU. NEB ×2 (07:43→11:32)
[2017-03-10 07:56] LABS: POC GLUCOSE 80 mg/dL (70-99)
[2017-03-10] MEDS: INSULIN ASPART 300 UNITS/3 ML INSULN.PEN SQ ×4 (08:00→11:59)
[2017-03-10] MEDS: FLUTICASONE 50MCG/NASAL SPRAY 16GM BOTTLE. NS (09:28)
[2017-03-10] MEDS: predniSONE 10 MG TABLET PO (09:29)
[2017-03-10] MEDS: LACTOBACILLUS RHAMNOSUS GG 1 CAPSULE. PO (09:29)
[2017-03-10] MEDS: PIOGLITAZONE 15 MG TABLET. PO (09:30)
[2017-03-10] MEDS: OMEGA-3 FATTY ACIDS/FISH OIL 1,000 MG CAPSULE. PO (09:30)
[2017-03-10] MEDS: METOPROLOL TART IMMED RELEASE 25 MG TABLET. PO (09:31)
[2017-03-10] MEDS: OXYBUTYNIN CHLORIDE 5 MG TABLET PO (09:32)
[2017-03-10] MEDS: ASPIRIN ENTERIC COATED 81 MG TABLET.DR. PO (09:32)
[2017-03-10] MEDS: FAMOTIDINE 20 MG TABLET. PO (09:32)
[2017-03-10] MEDS: NYSTATIN 100,000 UNIT/GM TOPICAL CREAM 15GM TUBE. TP (09:33)
[2017-03-10 11:28] LABS: POC GLUCOSE 168 mg/dL (70-99)
== END 2017-03-10 11:45 | DRG 865 ==
LOC: ER 08:22 → ED HOLD 09:28 → 5 SOUTH 14:43
PROC: 5A09357 Assistance with Respiratory Ventilation, Less than 24 Consecutive Hours, Continuous Positive Airway Pressure (ICD-10-PCS; principal; 2017-02-26)
PROC: 5A09357 Assistance with Respiratory Ventilation, Less than 24 Consecutive Hours, Continuous Positive Airway Pressure (ICD-10-PCS; 2017-02-27)
PROC: 5A09357 Assistance with Respiratory Ventilation, Less than 24 Consecutive Hours, Continuous Positive Airway Pressure (ICD-10-PCS; 2017-02-28)
PROC: 5A09357 Assistance with Respiratory Ventilation, Less than 24 Consecutive Hours, Continuous Positive Airway Pressure (ICD-10-PCS; 2017-03-02)
PROC: 5A09357 Assistance with Respiratory Ventilation, Less than 24 Consecutive Hours, Continuous Positive Airway Pressure (ICD-10-PCS; 2017-03-04)
PROC: 5A09357 Assistance with Respiratory Ventilation, Less than 24 Consecutive Hours, Continuous Positive Airway Pressure (ICD-10-PCS; 2017-03-05)
PROC: 5A09357 Assistance with Respiratory Ventilation, Less than 24 Consecutive Hours, Continuous Positive Airway Pressure (ICD-10-PCS; 2017-03-06)
PROC: 5A09357 Assistance with Respiratory Ventilation, Less than 24 Consecutive Hours, Continuous Positive Airway Pressure (ICD-10-PCS; 2017-03-07)
PROC: 5A09357 Assistance with Respiratory Ventilation, Less than 24 Consecutive Hours, Continuous Positive Airway Pressure (ICD-10-PCS; 2017-03-09)
PROC: 5A09357 Assistance with Respiratory Ventilation, Less than 24 Consecutive Hours, Continuous Positive Airway Pressure (ICD-10-PCS; 2017-03-10)
DX: B34.9 Viral infection, unspecified (principal); J96.21 Acute and chronic respiratory failure with hypoxia; G72.81 Critical illness myopathy; E11.22 Type 2 diabetes mellitus with diabetic chronic kidney disease; E11.51 Type 2 diabetes mellitus with diabetic peripheral angiopathy without gangrene; I48.91 Unspecified atrial fibrillation; E11.65 Type 2 diabetes mellitus with hyperglycemia; E86.0 Dehydration; J96.22 Acute and chronic respiratory failure with hypercapnia; E66.2 Morbid (severe) obesity with alveolar hypoventilation; J44.0 Chronic obstructive pulmonary disease with (acute) lower respiratory infection; Z68.41 Body mass index [BMI] 40.0-44.9, adult; J44.1 Chronic obstructive pulmonary disease with (acute) exacerbation; J20.9 Acute bronchitis, unspecified; K59.00 Constipation, unspecified; M19.90 Unspecified osteoarthritis, unspecified site; R21 Rash and other nonspecific skin eruption; N18.2 Chronic kidney disease, stage 2 (mild); T38.0X5A Adverse effect of glucocorticoids and synthetic analogues, initial encounter; J30.9 Allergic rhinitis, unspecified; E78.5 Hyperlipidemia, unspecified; I12.9 Hypertensive chronic kidney disease with stage 1 through stage 4 chronic kidney disease, or unspecified chronic kidney disease; I25.10 Atherosclerotic heart disease of native coronary artery without angina pectoris; I25.2 Old myocardial infarction; Z79.01 Long term (current) use of anticoagulants; Z79.4 Long term (current) use of insulin; Z79.82 Long term (current) use of aspirin; Z79.899 Other long term (current) drug therapy; Z82.49 Family history of ischemic heart disease and other diseases of the circulatory system; Z87.891 Personal history of nicotine dependence; Z95.1 Presence of aortocoronary bypass graft; Z99.81 Dependence on supplemental oxygen
CPT/HCPCS: 36415; 36600; 71045; 80048; 80053; 82553; 82805; 82962; 83735; 83880; 84439; 84484; 85025; 85520; 85610; 87070; 87205; 87804; 87804-59; 93005; 93306; 94640; 94644; 94660; 94760; 96374; 97110-GO; 97110-GP; 97116-GP; 97162-GP; 97166-GO; 97530-GO; 97535-GO; 99285; 99285-25; J1650; J1815; J2920; J2930; J7030; J7512; J7613; J7620; J7626; Q0162

== ENCOUNTER → 2018-07-01 | Outpatient (CLI) | payer OTHER ==
[~2018-07-01] VITALS: Ht 160 cm; Wt 120.2 kg
[~2018-07-01] MED LIST changes: +ALBU2.5V8 IH; +ALBU2SYR2 PO; +APIX5TAB PO; -PERFLUTREN PROTEIN-A MICROSPHR 0.22 MG/ML 3 ML VIAL. IV ONE; -PIOG30TA3 PO; +PIOG30TA41 PO; +PIOG30TA62 PO; -PROAIR HFA8.5 GM IH; +PROAIR RESPICL90 MCG IH
[2018-07-01 09:41] LABS: HEMATOCRIT 21.9 % (36.0-47.0)
[2018-07-01 10:08] VITALS: BP 132/60
[2018-07-01 10:53] VITALS: BP 117/53
[2018-07-01 13:15] VITALS: BP 143/74
[2018-07-01 14:05] VITALS: BP 124/55
[2018-07-01 14:40] VITALS: BP 122/85
[2018-07-01 15:29] LABS: HEMATOCRIT 26.1 % (36.0-47.0); HEMOGLOBIN 8.2 g/dL (12.0-15.5)
== END | disposition home or self-care (01) ==
LOC: OPS 08:48
PROVIDERS: ATTEND Internal Medicine
DX: D64.9 Anemia, unspecified (principal); I12.9 Hypertensive chronic kidney disease with stage 1 through stage 4 chronic kidney disease, or unspecified chronic kidney disease; E11.22 Type 2 diabetes mellitus with diabetic chronic kidney disease; N18.2 Chronic kidney disease, stage 2 (mild); J44.9 Chronic obstructive pulmonary disease, unspecified; I25.10 Atherosclerotic heart disease of native coronary artery without angina pectoris; I25.2 Old myocardial infarction; I48.91 Unspecified atrial fibrillation; E78.5 Hyperlipidemia, unspecified; E66.2 Morbid (severe) obesity with alveolar hypoventilation; E11.51 Type 2 diabetes mellitus with diabetic peripheral angiopathy without gangrene; M19.90 Unspecified osteoarthritis, unspecified site; J96.10 Chronic respiratory failure, unspecified whether with hypoxia or hypercapnia; Z99.81 Dependence on supplemental oxygen; Z79.01 Long term (current) use of anticoagulants; Z79.899 Other long term (current) drug therapy; Z95.1 Presence of aortocoronary bypass graft; Z68.41 Body mass index [BMI] 40.0-44.9, adult; Z87.891 Personal history of nicotine dependence; Z79.4 Long term (current) use of insulin; Z79.82 Long term (current) use of aspirin
CPT/HCPCS: 36415; 36430; 85014; 85018; 86850; 86900; 86901; 86920; P9016

== ENCOUNTER → 2018-11-09 | Outpatient (CLI) | payer OTHER ==
[2018-07-01 14:40] VITALS: BP 122/85
--- NOTE | 2018-11-09 12:36 | CARD ---
MR#: [id number] Date of Study: 11/09/2018 Ordering Physician: JACOB BROOKS, Referring Physician: JACOB BROOKS, Tech: Raina Oliver [facility] APPROVED REPORT EXAM: Two-dimensional and M-mode echocardiogram with Doppler and color Doppler. Other Information Quality : Technically LimitedHR: 80bpm Rhythm : NSRTechnically limited study due to body habitus and CABG. INDICATION CAD 2D DIMENSIONS RVDd3.5 (2.9-3.5cm)Left Atrium(2D)4.9 (1.6-4.0cm) IVSd1.3 (0.7-1.1cm)Aortic Root(2D)2.8 (2.0-3.7cm) LVDd5.7 (3.9-5.9cm)LVOT Diameter2.1 (1.8-2.4cm) PWd1.2 (0.7-1.1cm)LVDs4.2 (2.5-4.0cm) FS (%) 26.0 %SV82.1 ml LVEF(%)50.4 (>50%) Aortic Valve AoV Peak Kayode.165.7cm/sAoV VTI29.6cm AO Peak GR.11.0mmHgLVOT Peak Kayode.105.6cm/s AO Mean GR.7mmHgAVA (VMAX)2.25cm2 Mitral Valve MV E Hcktblrl223.0cm/sMV DECEL SAFU970uv MV A Gpvxecos91.0cm/sE/A Ratio6.0 Pulmonary Valve PV Peak Hhweeddt468.4cm/s Tricuspid Valve TR P. Tgkyeacc038mo/sRAP GPWFTSWV7aiEe TR Peak Gr.63hgUdWCXS92dgYq LEFT VENTRICLE The Left Ventricle is borderline dilated. There is mild concentric left ventricular hypertrophy. Left ventricle systolic function is low normal. The Ejection Fraction is 50-55%. Septal motion consistent with post-operative state. Tissue Doppler imaging reveals moderate left ventricular diastolic dysfun ction. RIGHT VENTRICLE The right ventricle is mildly to moderately dilated. There is normal right ventricular wall thickness . The right ventricular systolic function is normal. ATRIA The left atrium is moderately dilated. The right atrium is moderately dilated. The interatrial septum is intact with no evidence for an atrial septal defect or patent foramen ovale as noted on 2-D or Do ppler imaging. AORTIC VALVE Not well visualized. Doppler and Color Flow revealed no significant aortic regurgitation. There is no significant aortic valvular stenosis. MITRAL VALVE The mitral valve is normal in structure and function. There is no evidence of mitral valve prolapse. There is no mitral valve stenosis. Doppler and Color Flow revealed no mitral valve regurgitation note d. TRICUSPID VALVE The tricuspid valve is normal in structure and function. Doppler and Color Flow revealed mild tricusp id regurgitation. There is moderate pulmonary hypertension. The PA pressure was estimated at 51 mmHg. There is no tricuspid valve prolapse or vegetation. There is no tricuspid valve stenosis. PULMONIC VALVE The pulmonic valve is not well visualized. GREAT VESSELS The aortic root is normal in size. The ascending aorta is normal in size. The IVC is normal in size a nd collapses >50% with inspiration. PERICARDIAL EFFUSION There is no evidence of significant pericardial effusion. Critical Notification Critical Value: No <Conclusion> Left ventricle systolic function is low normal. The Ejection Fraction is 50-55%. Septal motion consistent with post-operative state. The right ventricle is mildly to moderately dilated. Doppler and Color Flow revealed mild tricuspid regurgitation. There is moderate pulmonary hypertensio n. The PA pressure was estimated at 51 mmHg. Signed by : Jacob Brooks, Electronically Approved : 11/09/2018 12:35:53
== END | disposition home or self-care (01) ==
LOC: ECHO 11:08
PROVIDERS: ATTEND Internal Medicine Cardiovascular Disease
DX: I07.1 Rheumatic tricuspid insufficiency (principal); I27.20 Pulmonary hypertension, unspecified; I11.9 Hypertensive heart disease without heart failure; I25.10 Atherosclerotic heart disease of native coronary artery without angina pectoris
CPT/HCPCS: 93306

== ENCOUNTER → 2019-11-30 | Outpatient (CLI) | payer OTHER ==
[2018-07-01 14:40] VITALS: BP 122/85
[~2019-11-30] MED LIST changes: -NITR0.4T SL; +NITR0.4T24 SL; +OXYB5TAB10 PO; -OXYB5TAB7 PO; +SIMV20TA18 PO; -SIMV20TA3 PO
--- NOTE | 2019-11-30 16:47 | KCIC ---
Bilateral digital screening mammograms: Reason for examination: Routine screening. Comparison is made to previous study dated 12/04/2015. Interpretation was made with the benefit of CAD. The skin and nipples show no abnormalities. No abnormal axillary lymph nodes are seen. The breast parenchyma shows scattered fibroglandular density. (Breast density: Category B.) There continue to be small nodular parenchymal densities bilaterally which are stable. There is a small parenchymal density with some adjacent calcifications at the 11:00 B position which contains biopsy clip and is stable. There are no new dominant masses, suspicious calcifications or architectural distortions. Some benign calcifications are present. Impression: No evidence of malignancy. Recommend routine screening. BI-RADS category 2: Benign "Our facility is accredited by the [employer] Mammography [employer]." This patient's information has been entered into a reminder system for the patient to be notified with the results of her examination and a target date for the next mammogram. Electronically signed by: Yaneli Mckeon MD (11/30/2019 4:44 PM) [id number]
== END ==
LOC: KCIC MAMMO 15:22
PROVIDERS: ATTEND Internal Medicine
DX: Z12.31 Encounter for screening mammogram for malignant neoplasm of breast (principal); N64.89 Other specified disorders of breast
CPT/HCPCS: 77067